=== PATIENT | male | born 1975 | race Caucasian/White ===

== ENCOUNTER 2021-05-19 23:37 | Emergency (ER) | payer BC, OTHER ==
[~2021-05-19] VITALS: Ht 188 cm; Wt 131.5 kg
[2021-05-19 23:37] VITALS: BP 164/104
== END 2021-05-20 06:25 | disposition left against medical advice (07) ==
LOC: ER 23:39
DX: R05.9 Cough, unspecified (principal); Z53.21 Procedure and treatment not carried out due to patient leaving prior to being seen by health care provider
CPT/HCPCS: 71045